=== PATIENT | male | born 2000 | race Caucasian/White ===

== ENCOUNTER 2025-06-12 21:57 | Emergency (ER) | payer BC ==
[~2025-06-12] VITALS: Ht 177.8 cm; Wt 80.0 kg
[2025-06-12] MEDS ORDERED: HYDROXYZINE HCL25 MG PO (22:09)
[2025-06-12] MEDS ORDERED: LORazepam 2 MG/ML VIAL IV ONE (22:15)
[2025-06-12 22:20] LABS: BASOPHILS 0.4 % (0.2-1.2); EOSINOPHILS 1.2 % (0.8-7.0); LYMPHOCYTES 24.8 % (21.8-53.1); MCH 30.9 PG (25.7-32.2); MCHC 36.0 g/dL (32.3-36.5); MCV 85.9 fL (79.0-92.2); MONOCYTES 7.7 % (5.3-12.2); NEUTROPHILS 65.7 % (34.0-67.9); RBC 5.11 M/uL (4.63-6.08)
[2025-06-12 22:33] LABS: INR 0.94 (0.80-1.30); PROTIME 12.2 Sec (11.2-14.2)
[2025-06-12 22:40] LABS: ALT (SGPT) 75 U/L (14-59); AST (SGOT) 38 U/L (15-37); GLOMERULAR FILTRATION RATE,EST 106 mL/min (>60); PROTEIN, TOTAL 8.3 g/dL (6.4-8.2); UREA NITROGEN 11 mg/dL (7-18)
[2025-06-12 23:13] LABS: INFLUENZA B NAA NEGATIVE (NEGATIVE); RESPIRATORY SYNCYTIAL VIR NAA NEGATIVE (NEGATIVE)
[2025-06-13 00:24] VITALS: BP 131/82
[2025-06-13] MEDS ORDERED: LORazepam 1 MG HOME.PACK PO ONE (23:45)
--- NOTE | 2025-06-14 16:23 | EKG ---
[facility] [address] [place] [address] Signed Poor data quality, interpretation may be adversely affected Sinus tachycardia Otherwise normal ECG No previous ECGs available Confirmed by Guy Auguste MD () on 06/14/2025 4:23:00 PM Electronically Signed By: GUY AUGUSTE MD 06/14/25 1623 PATIENT NAME: ZACHARY BOUDREAUX RIA Electrocardiogram DATE OF : [birth year] PHYSICIAN: GUY AUGUSTE MD REPORT #: [id number] REPORT IS CONFIDENTIAL AND NOT TO BE RELEASED WITHOUT AUTHORIZATION
== END 2025-06-13 00:25 | disposition home or self-care (01) ==
LOC: ED 21:57
PROVIDERS: Family Medicine
DX: R07.89 Other chest pain (principal); Z88.0 Allergy status to penicillin; Z11.52 Encounter for screening for COVID-19
CPT/HCPCS: 36415; 71045; 80053; 83690; 83735; 84484; 85025; 85610; 87502; 93005; 93010; 96374; 99285-25; J2060; U0002